=== PATIENT | male | born 1975 | race Caucasian/White ===

== ENCOUNTER 2018-09-25 18:26 | Emergency (ER) | payer MEDICAID, SELFPAY ==
[~2018-09-25] VITALS: Ht 190.5 cm; Wt 94.0 kg
[2018-09-25 18:27] VITALS: BP 119/51
[2018-09-25] MEDS ORDERED: BACITRACIN ZINC OINT 500U/GM, 0.9 GM ONE (19:06)
--- NOTE | 2018-09-25 19:21 | NUR ---
Aluminum foam spint, gauze, and bacitracin placed on pointer finger. Care intructions given.
== END 2018-09-25 19:38 | disposition home or self-care (01) ==
LOC: ED 19:15
DX: L03.113 Cellulitis of right upper limb (principal)
CPT/HCPCS: 99283